=== PATIENT | female | born 1995 | race Caucasian/White ===

== ENCOUNTER 2024-09-10 17:25 | Inpatient (IN) ==
[2024-09-10 18:26] LABS: Basophils # (auto) 0.05 K/uL (0.00-0.20); Basophils % (auto) 0.5 %; Eosinophils # (auto) 0.16 K/uL (0.00-0.50); Eosinophils % (auto) 1.7 %; Hematocrit (blood only) 32.2 % (37.0-47.0); Hemoglobin 10.8 g/dl (12.0-16.0); Immature Granulocytes # (auto) 0.02 K/uL (0.01-0.20); Immature Granulocytes % (auto) 0.2 %; Lymphocytes % (auto) 19.8 %; Mean Corpuscular Hemoglobin 27.3 pg (25.0-34.0); Mean Corpuscular Hgb Conc 33.5 g/dL (32.0-36.0); Mean Corpuscular Volume 81.3 fL (80.0-100.0); Mean Platelet Volume 11.2 fL (9.4-12.4); Monocytes # (auto) 0.51 K/uL (0.11-0.59); Monocytes % (auto) 5.3 %; Neutrophils # (auto) 6.97 K/uL (1.40-6.50); Neutrophils % (auto) 72.5 %; Platelet Count 218 K/uL (130-400); RDW Coefficient of Variation 15.2 % (11.5-14.5); RDW Standard Deviation 44.7 fL (36.4-46.3); Red Blood Count 3.96 M/uL (4.20-5.40); White Blood Count 9.61 K/ul (4.8-10.8)
[2024-09-10 19:40] LABS: Albumin Globulin Ratio 1.3 (0.9-2); Albumin Level 3.5 gm/dl (3.4-5.0); BUN Creatinine Ratio 11.1 (10-20); Bilirubin,Total 0.9 mg/dl (0.2-1.0); Calcium 8.7 mg/dl (8.6-10.3); Creatinine Clr Calc Pharmacy 200.6 ml/min; Globulin 2.6 gm/dl (2.5-4.0); Potassium 3.2 mmol/L (3.5-5.1); Total Protein 6.1 gm/dl (6.0-8.3)
[2024-09-10 20:03] LABS: Total Protein Urine Random 19.9 mg/dl (0-11.9)
[2024-09-10 20:08] LABS: Creatinine Urine Random 210.4 mg/dl; Protein Creatinine Ratio Urine 0.1 (0-0.2)
[2024-09-10] MEDS ORDERED: LIDOCAINE 1% LOCAL 20 ML VIAL INFIL PRN (20:28)
--- NOTE | 2024-09-10 20:32 | History & Physical Report ---
Date of Service September 10, 2024 Assessment & Plan (1) Gestational hypertension: Plan: Admit to L&D. EFM/toco. Preeclampsia labs negative. Will recheck in AM and continue to monitor BPs. Will start pitocin. OK for epidural when she desires. History of Present Illness Chief Complaint: elevated BPs Primary Care Provider: JAIR Hinojosa 28yo @ 38 0/7, referred to L&D from office for elevated BPs. Was delivered at 38w in prior d/t elevated BPs - pt notified office of this for the first time today. + movement, no vaginal bleeding, no leaking fluid. No contractions. No headache, no vision changes. Allergies Allergy/AdvReac Type Severity Reaction Status Date / Time No Known Allergies Allergy Verified 09/10/24 15:39 Home Medications Medication Instructions Recorded Confirmed Type prenat.vits,sasha,afv-btim-preht tab PO 02/22/24 09/10/24 History fexofenadine 30 mg tablet PO 09/10/24 History Patient History Medical History (Updated 09/10/24 @ 20:36 by Susy Varela, ) Generalized anxiety disorder Surgical History History of oral surgery Family History (System 12/02/22 @ 14:39 by Yolanda Dewitt) Father Bipolar disorder Depression Schizophrenia Grandfather (Maternal) Brain cancer Mother Breast cancer Grandmother (Maternal) Skin cancer Denies family history of Ovarian cancer Prostate cancer Myocardial infarction Colorectal cancer Social History (Updated 02/22/24 @ 10:56 by Esperanza Arango) Smoking Status: Never smoker Second Hand Exposure: No; Do You Dip or Chew Tobacco: No; Hx Alcohol Use: No Hx Substance Use: No Preferred Language: Wolof Communication Ability: Effective 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 current occupational status: employed current occupation: RN Other Information That Helps Us Care for You: No Feels Safe at Home: Yes Safety Concerns: Feels Safe At This Time Childhood Exposure to Second-Hand Smoke: No Dental Care, Regularly: Yes Physical Activity Frequency: 3-4 Times per Week Sunscreen Use: Yes Assistive Devices: None Review of Systems All systems reviewed & are unremarkable except as noted in HPI & below Physical Exam Physical Exam: FHT Cat 1 [place] none SVE: 3/80/-2, anterior, soft. EFW 7-8 Constitutional: WD/WN, vitals as above Respiratory: normal respiratory effort, lungs clear to auscultation no respiratory distress Cardiovascular: Rate/Rhythm: regular rate and regular rhythm Gastrointestinal (Abdomen): Inspection/Auscultation: abdomen normal to inspection Percussion/Palpation: abdomen soft; abdomen nontender Gravid. No s/s chorio or abruption. Skin: no rashes, warm and dry Psychiatric: A+Ox3, euthymic affect Results & Data Vital Signs (Past 12 Hours) Vital Signs Temp Pulse Resp BP Pulse Ox 09/10/24 20:28 111 H 97 09/10/24 20:23 111 H 98 09/10/24 20:18 134 H 172/109 H 100 09/10/24 20:13 116 H 97 09/10/24 20:08 109 H 97 09/10/24 20:03 107 H 97 09/10/24 19:58 101 H 97 09/10/24 19:53 112 H 97 09/10/24 19:48 118 H 98 09/10/24 19:43 119 H 97 09/10/24 19:38 109 H 97 09/10/24 19:33 102 H 98 09/10/24 19:31 137 H 131/88 09/10/24 19:21 115 H 135/88 09/10/24 19:12 37.0 C 16 09/10/24 18:57 121 H 146/97 H 09/10/24 18:48 114 H 139/91 09/10/24 18:37 113 H 135/82 09/10/24 18:29 125 H 132/85 09/10/24 18:17 123 H 148/80 H 09/10/24 18:08 120 H 153/91 H 09/10/24 17:59 136 H 156/89 H 09/10/24 17:47 133 H 150/93 H 09/10/24 17:37 37.0 C 127 H 20 139/85 Coding Level of Care Code None Diagnoses Gestational hypertension O13.9
[2024-09-10] MEDS: LACTATED RINGER'S 1,000 ML IV PRN (21:43)
[2024-09-10] MEDS: OXYTOCIN 30 UNITS/NSS 30 UNITS/500 ML BAG IV PRN (21:43)
[2024-09-11] MEDS ORDERED: SODIUM CHLORIDE 0.9% PF INJ 10 ML VIAL EPI PRN (01:10)
[2024-09-11] MEDS ORDERED: LIDOCAINE 2% MPF LOCAL 5 ML VIAL EPI PRN (01:10)
[2024-09-11] MEDS ORDERED: NALOXONE HCL 1 MG in SODIUM CHLORIDE 0.9% 1,000 ML IV PRN (01:10)
[2024-09-11] MEDS ORDERED: NALBUPHINE HCL INJ 10 MG/ML AMP IV PRN (01:10)
[2024-09-11] MEDS ORDERED: fentaNYL citrate PF 100 MCG/2 ML VIAL EPI PRN (01:10)
[2024-09-11] MEDS ORDERED: ROPIVACAINE 0.5% PF 5 MG/ML 20 ML VIAL EPI PRN (01:10)
[2024-09-11] MEDS ORDERED: BUPIVACAINE 0.25% PF 30 ML VIAL EPI PRN (01:10)
[2024-09-11] MEDS ORDERED: diphenhydrAMINE 50 MG/ML VIAL IV PRN (01:10)
[2024-09-11] MEDS ORDERED: NALOXONE HCL 0.4 MG/1 ML VIAL/CARP IV PRN (01:10)
--- NOTE | 2024-09-11 01:12 | Anesthesiology Consultation ---
Date of Service September 11, 2024 Assessment & Plan Chart Review Chart Review: Patient NOT seen in Pre Admission Testing and Acceptable Risk for Labor Epidural Consults Requested none ASA ASA3 Proposed Anesthesia Anesthesia Type: Labor Epidural Risk / Benefits Reviewed With: PT / POA / Parent / Guardian, Accepts Plan and Informed Consent Obtained History Height/Weight Height: 5 ft 5 in Weight: 117.48 kg Allergies Allergy/AdvReac Type Severity Reaction Status Date / Time No Known Allergies Allergy Verified 09/10/24 15:39 Medications Home Medications Medication Instructions Recorded Confirmed Last Taken prenat.vits,sasha,mkd-ycbb-deeds tab PO 02/22/24 09/10/24 09/10/24 07:00 fexofenadine 30 mg tablet PO 09/10/24 09/10/24 07:00 Active Medications Generic Name Dose Route Start Last Admin Trade Name Freq PRN Reason Stop Dose Admin Lactated Ringer's 1,000 mls @ 125 mls/hr 09/10/24 20:28 09/11/24 00:30 Lr IV 09/11/24 20:27 125 mls/hr .Q8H PRN Infusion L&D Protocol Protocol Oxytocin 30 units in 500 mls @ 5 mls/hr 09/10/24 20:29 09/11/24 00:15 Pitocin 30 Units/Nss IV 09/12/24 20:28 0.3 units/hr .Q24H PRN 5 mls/hr Labor Induction/Augmentation Titration Protocol 0.3 UNITS/HR NPO Date Last Intake of Fluids: 09/11/24 Time Last Intake of Fluids: 01:00 Date Last Intake of Solids: 09/10/24 Time Last Intake of Solids: 16:00 Past Medical History Medical History Generalized anxiety disorder Exercise / Class Metabolic Activity 1 > 8 Run/Swim/Ski/Tennis Past Family History Family History Father Bipolar disorder Depression Schizophrenia Grandfather (Maternal) Brain cancer Mother Breast cancer Grandmother (Maternal) Skin cancer Denies family history of Ovarian cancer Prostate cancer Myocardial infarction Colorectal cancer Past Surgical History Surgical History History of oral surgery Past Anesthesia History No Hx of Anesthesia Complications and No Family Hx of Anesthesia Complications History of PONV No Hx of PONV and No Hx of Motion Sickness Social History Smoking Status: Never smoker Do You Dip or Chew Tobacco: No Hx Alcohol Use: No Alcohol type: beer, wine and hard liquor Hx Substance Use: No Review of Systems ROS Unobtainable: All systems reviewed & are unremarkable except as noted in HPI & below Physical Exam Vital Signs Last Vital Signs Temp 37.0 C 09/10/24 22:30 Pulse 80 09/11/24 01:05 Resp 16 09/10/24 23:00 BP 133/79 09/11/24 00:49 Pulse Ox 97 09/11/24 01:05 ENMT Mouth: no TMJ abnormality Thyromental Distance: > or= 3.5 Finger Breadths Mallampati Class: II Neck normal visual inspection and trachea midline; neck extension not limited Respiratory normal respiratory effort Auscultation: lungs clear to auscultation bilaterally Cardiovascular Rate/Rhythm: regular rate and regular rhythm Heart Sounds: no murmur Musculoskeletal Spine: normal cervical ROM Extremities: full ROM of extremities Neurologic moves all extremities Psychiatric Orientation: alert and oriented x 3 Testing Laboratory Results 09/10/24 18:13 09/10/24 18:13 Blood Type A Positive 09/10/24 18:13 Blood Type Cancelled 09/10/24 18:13 Antibody Screen Cancelled 09/10/24 18:13 Antibody Screen NEGATIVE 09/10/24 18:13
[2024-09-11] MEDS: BUPIVACAINE 0.25% PF 30 ML VIAL ONE (01:28)
[2024-09-11] MEDS: fentANYL 2 MCG/ML BUPIVacaine 0.125%-NSS 100ML BAG ONE (01:28)
[2024-09-11] MEDS: SODIUM CHLORIDE 0.9% PF INJ 10 ML VIAL ONE (01:28)
[2024-09-11] MEDS: ePHEDrine sulfate 50 MG/ML AMP IV PRN (01:42)
[2024-09-11] MEDS: LIDOCAINE 2%/EPINEPHRINE 1:200,000 20 ML PF ONE (02:03)
[2024-09-11] MEDS: BUPIVACAINE 0.25% PF 30 ML VIAL EPI STA (02:03)
[2024-09-11] MEDS: fentaNYL citrate PF 100 MCG/2 ML VIAL ONE (02:03)
[2024-09-11] MEDS: LIDOCAINE 2%/EPINEPHRINE 1:200,000 20 ML PF EPI STA (02:04)
[2024-09-11] MEDS: SODIUM CHLORIDE 0.9% PF INJ 10 ML VIAL EPI STA (02:04)
[2024-09-11] MEDS: fentaNYL citrate PF 100 MCG/2 ML VIAL EPI STA (02:04)
[2024-09-11] MEDS: ePHEDrine sulfate 50 MG/ML AMP ONE (02:25)
[2024-09-11 04:36] LABS: Hematocrit (blood only) 30.4 % (37.0-47.0); Hemoglobin 10.2 g/dl (12.0-16.0); Mean Corpuscular Hemoglobin 27.1 pg (25.0-34.0); Mean Corpuscular Hgb Conc 33.6 g/dL (32.0-36.0); Mean Corpuscular Volume 80.6 fL (80.0-100.0); Mean Platelet Volume 11.1 fL (9.4-12.4); Platelet Count 212 K/uL (130-400); RDW Coefficient of Variation 15.4 % (11.5-14.5); RDW Standard Deviation 44.5 fL (36.4-46.3); Red Blood Count 3.77 M/uL (4.20-5.40); White Blood Count 8.67 K/ul (4.8-10.8)
[2024-09-11 04:46] LABS: Albumin Globulin Ratio 1.2 (0.9-2); Albumin Level 3.2 gm/dl (3.4-5.0); BUN Creatinine Ratio 9.4 (10-20); Calcium 7.8 mg/dl (8.6-10.3); Creatinine Clr Calc Pharmacy 204.4 ml/min; Globulin 2.7 gm/dl (2.5-4.0); Potassium 3.4 mmol/L (3.5-5.1); Total Protein 5.9 gm/dl (6.0-8.3)
--- NOTE | 2024-09-11 07:30 | Labor Progress Brief Note ---
Date of Service September 11, 2024 Subjective Comfortable with epidural. FHT Cat 1 [place] Q 2-3 SVE 5/80/-2 AROM clear fluid. Assessment & Plan Admission and Anticipated Discharge Date Admission Date: September 10, 2024 Results & Data Vital Signs (Past 12 Hours) Vital Signs Temp Pulse Resp BP Pulse Ox 09/11/24 07:28 78 116/67 09/11/24 07:25 87 98 09/11/24 07:20 84 96 09/11/24 07:19 83 94 09/11/24 07:15 92 H 94 09/11/24 07:14 86 89 L 09/11/24 07:11 86 122/71 09/11/24 07:10 79 95 09/11/24 07:09 94 H 94 09/11/24 07:05 94 H 95 09/11/24 07:00 98 H 16 94 09/11/24 06:56 94 H 128/75 09/11/24 06:55 98 H 97 09/11/24 06:53 108 H 93 09/11/24 06:50 81 97 09/11/24 06:45 95 H 95 09/11/24 06:42 75 122/69 09/11/24 06:40 83 98 09/11/24 06:35 89 97 09/11/24 06:30 91 H 16 97 09/11/24 06:26 100 H 122/71 09/11/24 06:25 94 H 98 09/11/24 06:24 87 92 09/11/24 06:20 84 98 09/11/24 06:18 100 H 92 09/11/24 06:15 106 H 99 09/11/24 06:11 92 H 120/66 09/11/24 06:10 86 97 09/11/24 06:08 105 H 94 09/11/24 06:05 98 H 95 09/11/24 06:02 91 H 94 09/11/24 06:00 86 16 94 09/11/24 05:57 85 94 09/11/24 05:56 86 116/66 09/11/24 05:55 84 90 09/11/24 05:50 90 94 09/11/24 05:45 85 94 09/11/24 05:43 76 93 09/11/24 05:41 98 H 122/70 09/11/24 05:40 92 H 93 09/11/24 05:37 77 93 09/11/24 05:35 89 94 09/11/24 05:31 84 93 09/11/24 05:30 113 H 96 09/11/24 05:26 81 02 05:26 88 121/61 93 09/11/24 05:25 87 95 09/11/24 05:20 81 93 09/11/24 05:15 77 95 09/11/24 05:12 93 H 130/65 09/11/24 05:11 90 91 09/11/24 05:10 96 H 96 09/11/24 05:05 92 H 94 09/11/24 05:04 93 H 94 09/11/24 05:00 86 16 93 09/11/24 04:59 36.7 C 09/11/24 04:56 88 113/60 09/11/24 04:55 82 92 09/11/24 04:50 86 93 09/11/24 04:45 93 H 94 09/11/24 04:42 88 127/68 09/11/24 04:40 83 93 09/11/24 04:37 105 H 92 09/11/24 04:35 90 92 09/11/24 04:31 86 94 09/11/24 04:30 96 H 16 96 09/11/24 04:26 93 H 121/66 09/11/24 04:25 88 98 09/11/24 04:20 85 96 09/11/24 04:16 87 94 09/11/24 04:15 90 94 09/11/24 04:11 86 120/69 93 09/11/24 04:10 99 H 95 09/11/24 04:05 97 H 96 09/11/24 04:00 101 H 16 93 09/11/24 03:58 104 H 94 09/11/24 03:56 105 H 127/64 02 03:55 96 H 95 09/11/24 03:52 114 H 94 09/11/24 03:50 109 H 92 09/11/24 03:47 86 94 09/11/24 03:45 93 H 96 09/11/24 03:42 90 93 09/11/24 03:41 101 H 122/59 L 09/11/24 03:40 85 93 09/11/24 03:35 82 93 09/11/24 03:30 84 16 93 09/11/24 03:28 99 H 94 09/11/24 03:26 90 122/59 L 09/11/24 03:25 83 92 09/11/24 03:22 82 94 09/11/24 03:20 89 93 09/11/24 03:15 92 H 93 09/11/24 03:10 111 H 103/59 L 97 09/11/24 03:06 83 113/66 09/11/24 03:05 75 91 09/11/24 03:03 93 H 94 09/11/24 03:00 84 16 117/65 94 09/11/24 02:57 82 94 09/11/24 02:55 85 117/66 96 09/11/24 02:52 79 93 09/11/24 02:50 97 09/11/24 02:50 93 H 09/11/24 02:50 97 H 121/66 09/11/24 02:47 89 120/63 09/11/24 02:46 82 94 09/11/24 02:45 80 96 09/11/24 02:40 98 09/11/24 02:40 108 H 09/11/24 02:40 101 H 110/59 L 93 09/11/24 02:36 91 H 120/66 09/11/24 02:35 95 09/11/24 02:35 93 H 09/11/24 02:35 80 94 09/11/24 02:31 88 124/65 09/11/24 02:30 86 16 92 09/11/24 02:27 84 94 09/11/24 02:25 112 H 116/66 97 09/11/24 02:21 92 H 120/65 09/11/24 02:20 92 H 92 09/11/24 02:15 95 09/11/24 02:15 101 H 09/11/24 02:15 91 H 128/66 09/11/24 02:13 82 94 09/11/24 02:10 94 09/11/24 02:10 103 H 09/11/24 02:10 99 H 116/59 L 09/11/24 02:07 105 H 94 09/11/24 02:05 82 127/69 94 09/11/24 02:02 86 93 09/11/24 02:00 103 H 16 125/67 92 09/11/24 01:57 100 H 120/62 09/11/24 01:56 98 H 94 09/11/24 01:55 102 H 113/55 L 100 09/11/24 01:52 90 128/71 09/11/24 01:50 97 H 111/60 100 09/11/24 01:49 100 H 90 09/11/24 01:48 96 H 130/70 09/11/24 01:47 95 H 134/73 09/11/24 01:46 86 122/67 09/11/24 01:45 87 16 96 09/11/24 01:44 97 H 93/51 L 09/11/24 01:43 74 91 09/11/24 01:42 82 93/55 L 09/11/24 01:41 81 90/53 L 09/11/24 01:40 89 L 09/11/24 01:40 89 09/11/24 01:40 94 H 97/55 L 09/11/24 01:39 90 109/60 09/11/24 01:38 93 H 96/50 L 91 09/11/24 01:36 104 H 121/58 L 09/11/24 01:35 16 09/11/24 01:35 16 09/11/24 01:35 94 09/11/24 01:35 100 H 09/11/24 01:35 121 H 114/58 L 09/11/24 01:33 121 H 113/56 L 09/11/24 01:31 103 H 126/68 09/11/24 01:30 99 H 16 92 09/11/24 01:29 109 H 119/81 09/11/24 01:26 96 H 121/85 92 09/11/24 01:25 98 H 91 09/11/24 01:21 85 87 L 09/11/24 01:20 87 98 09/11/24 01:15 79 95 09/11/24 01:10 84 97 09/11/24 01:09 87 93 09/11/24 01:05 80 97 09/11/24 01:02 81 94 09/11/24 01:00 81 100 09/11/24 00:55 78 96 09/11/24 00:50 83 96 09/11/24 00:49 86 133/79 91 02/26/25 00:45 90 96 09/11/24 00:40 86 96 09/11/24 00:26 78 97 09/11/24 00:21 83 97 09/11/24 00:16 89 97 09/11/24 00:11 86 96 09/11/24 00:06 82 96 09/11/24 00:01 84 95 09/10/24 23:56 92 H 94 09/10/24 23:51 91 H 95 09/10/24 23:50 103 H 122/83 09/10/24 23:49 98 H 94 09/10/24 23:46 96 H 96 09/10/24 23:41 90 97 09/10/24 23:36 83 96 09/10/24 23:31 92 H 96 09/10/24 23:26 98 H 94 09/10/24 23:24 85 94 09/10/24 23:21 82 95 09/10/24 23:16 77 94 09/10/24 23:15 92 H 93 09/10/24 23:11 92 H 96 09/10/24 23:06 90 96 09/10/24 23:02 88 91 09/10/24 23:01 90 96 09/10/24 23:00 16 09/10/24 23:00 16 09/10/24 22:56 93 H 96 09/10/24 22:52 96 H 145/82 H 09/10/24 22:51 98 09/10/24 22:51 97 H 09/10/24 22:51 93 H 94 09/10/24 22:46 93 H 95 09/10/24 22:41 91 H 96 09/10/24 22:36 97 H 97 09/10/24 22:31 98 H 98 09/10/24 22:30 16 09/10/24 22:30 37.0 C 16 09/10/24 22:22 103 H 95 09/10/24 22:17 99 H 96 09/10/24 22:12 105 H 96 09/10/24 22:07 99 H 95 09/10/24 22:02 99 H 97 09/10/24 21:57 98 H 96 09/10/24 21:52 100 H 96 09/10/24 21:47 106 H 95 09/10/24 21:42 103 H 96 09/10/24 21:37 95 H 97 09/10/24 21:32 111 H 97 09/10/24 21:27 109 H 97 09/10/24 21:23 104 H 93 09/10/24 21:21 105 H 96 09/10/24 21:16 101 H 97 09/10/24 21:11 99 H 97 09/10/24 21:06 107 H 97 09/10/24 21:01 107 H 97 09/10/24 20:56 108 H 97 09/10/24 20:52 120 H 158/96 H 09/10/24 20:51 120 H 93 09/10/24 20:46 113 H 98 09/10/24 20:37 121 H 182/101 H 09/10/24 20:33 97 09/10/24 20:33 124 H 09/10/24 20:33 126 H 178/105 H 09/10/24 20:28 111 H 97 09/10/24 20:23 111 H 98 09/10/24 20:18 134 H 172/109 H 100 09/10/24 20:13 116 H 97 09/10/24 20:08 109 H 97 09/10/24 20:03 107 H 97 09/10/24 19:58 101 H 97 09/10/24 19:53 112 H 97 09/10/24 19:48 118 H 98 09/10/24 19:43 119 H 97 09/10/24 19:38 109 H 97 09/10/24 19:33 102 H 98 09/10/24 19:31 137 H 131/88 Coding Level of Care Code None
--- NOTE | 2024-09-11 09:05 | Labor Progress Brief Note ---
Date of Service September 11, 2024 Subjective denies pain, has epidural Assessment & Plan (1) Encounter for induction of labor: Plan: no progress by exam, ctx pattern not well traced, iupc placed as likely needs more pit, will increase pit max. fhts categ 1. (2) Gestational hypertension: Plan: bps ok. Admission and Anticipated Discharge Date Admission Date: September 10, 2024 Physical Exam Constitutional: WD/WN, vitals as above Genitourinary: Manual OB Exam: + cervical dilation 5 cm, + cervical effacement (75%) and + station -2 OB Exam Monitor Tracing: + external FHT monitor used, + external uterine monitor used (not traced well, pit at 17), + intra-uterine pressure catheter used (IUPC placed. ), + category I and + normal FHT variability Results & Data Vital Signs (Past 12 Hours) Vital Signs Temp Pulse Resp BP Pulse Ox 09/11/24 09:00 78 97 09/11/24 08:56 80 107/58 L 09/11/24 08:55 78 97 09/11/24 08:50 88 94 09/11/24 08:45 87 97 09/11/24 08:41 91 H 100/57 L 09/11/24 08:40 92 H 96 09/11/24 08:38 83 94 09/11/24 08:35 84 95 09/11/24 08:32 79 94 09/11/24 08:30 79 94 09/11/24 08:26 93 H 104/56 L 09/11/24 08:25 95 H 94 09/11/24 08:24 96 H 94 09/11/24 08:20 97 H 96 09/11/24 08:15 106 H 95 09/11/24 08:14 100 H 94 09/11/24 08:12 95 H 123/75 09/11/24 08:10 103 H 96 09/11/24 08:05 102 H 96 09/11/24 08:00 94 H 94 09/11/24 07:56 82 118/73 09/11/24 07:55 84 96 09/11/24 07:50 97 09/11/24 07:50 104 H 09/11/24 07:50 83 94 09/11/24 07:45 97 H 97 09/11/24 07:42 86 123/73 09/11/24 07:40 97 H 97 09/11/24 07:35 86 97 09/11/24 07:30 80 95 09/11/24 07:28 78 116/67 09/11/24 07:25 87 98 09/11/24 07:20 84 96 09/11/24 07:19 83 94 09/11/24 07:15 92 H 94 09/11/24 07:14 86 89 L 09/11/24 07:11 86 122/71 09/11/24 07:10 79 95 09/11/24 07:09 94 H 94 09/11/24 07:05 94 H 95 09/11/24 07:00 97.7 F 98 H 16 94 09/11/24 06:56 94 H 128/75 09/11/24 06:55 98 H 97 09/11/24 06:53 108 H 93 09/11/24 06:50 81 97 09/11/24 06:45 95 H 95 09/11/24 06:42 75 122/69 09/11/24 06:40 83 98 09/11/24 06:35 89 97 09/11/24 06:30 91 H 16 97 09/11/24 06:26 100 H 122/71 09/11/24 06:25 94 H 98 09/11/24 06:24 87 92 09/11/24 06:20 84 98 09/11/24 06:18 100 H 92 09/11/24 06:15 106 H 99 09/11/24 06:11 92 H 120/66 09/11/24 06:10 86 97 09/11/24 06:08 105 H 94 09/11/24 06:05 98 H 95 09/11/24 06:02 91 H 94 09/11/24 06:00 86 16 94 09/11/24 05:57 85 94 09/11/24 05:56 86 116/66 09/11/24 05:55 84 90 09/11/24 05:50 90 94 09/11/24 05:45 85 94 09/11/24 05:43 76 93 09/11/24 05:41 98 H 122/70 09/11/24 05:40 92 H 93 09/11/24 05:37 77 93 09/11/24 05:35 89 94 09/11/24 05:31 84 93 09/11/24 05:30 113 H 96 09/11/24 05:26 81 09/11/24 05:26 88 121/61 93 09/11/24 05:25 87 95 09/11/24 05:20 81 93 09/11/24 05:15 77 95 09/11/24 05:12 93 H 130/65 09/11/24 05:11 90 91 09/11/24 05:10 96 H 96 09/11/24 05:05 92 H 94 09/11/24 05:04 93 H 94 09/11/24 05:00 86 16 93 09/11/24 04:59 98.1 F 09/11/24 04:56 88 113/60 09/11/24 04:55 82 92 09/11/24 04:50 86 93 09/11/24 04:45 93 H 94 09/11/24 04:42 88 127/68 09/11/24 04:40 83 93 09/11/24 04:37 105 H 92 09/11/24 04:35 90 92 09/11/24 04:31 86 94 09/11/24 04:30 96 H 16 96 09/11/24 04:26 93 H 121/66 09/11/24 04:25 88 98 09/11/24 04:20 85 96 09/11/24 04:16 87 94 09/11/24 04:15 90 94 09/11/24 04:11 86 120/69 93 09/11/24 04:10 99 H 95 09/11/24 04:05 97 H 96 09/11/24 04:00 101 H 16 93 09/11/24 03:58 104 H 94 09/11/24 03:56 105 H 127/64 09/11/24 03:55 96 H 95 09/11/24 03:52 114 H 94 09/11/24 03:50 109 H 92 09/11/24 03:47 86 94 09/11/24 03:45 93 H 96 09/11/24 03:42 90 93 09/11/24 03:41 101 H 122/59 L 09/11/24 03:40 85 93 09/11/24 03:35 82 93 09/11/24 03:30 84 16 93 09/11/24 03:28 99 H 94 09/11/24 03:26 90 122/59 L 09/11/24 03:25 83 92 09/11/24 03:22 82 94 09/11/24 03:20 89 93 09/11/24 03:15 92 H 93 09/11/24 03:10 111 H 103/59 L 97 09/11/24 03:06 83 113/66 09/11/24 03:05 75 91 09/11/24 03:03 93 H 94 09/11/24 03:00 84 16 117/65 94 09/11/24 02:57 82 94 09/11/24 02:55 85 117/66 96 09/11/24 02:52 79 93 09/11/24 02:50 97 09/11/24 02:50 93 H 09/11/24 02:50 97 H 121/66 09/11/24 02:47 89 120/63 09/11/24 02:46 82 94 09/11/24 02:45 80 96 09/11/24 02:40 98 09/11/24 02:40 108 H 09/11/24 02:40 101 H 110/59 L 93 09/11/24 02:36 91 H 120/66 09/11/24 02:35 95 09/11/24 02:35 93 H 09/11/24 02:35 80 94 09/11/24 02:31 88 124/65 09/11/24 02:30 86 16 92 09/11/24 02:27 84 94 09/11/24 02:25 112 H 116/66 97 09/11/24 02:21 92 H 120/65 09/11/24 02:20 92 H 92 09/11/24 02:15 95 09/11/24 02:15 101 H 09/11/24 02:15 91 H 128/66 09/11/24 02:13 82 94 09/11/24 02:10 94 09/11/24 02:10 103 H 09/11/24 02:10 99 H 116/59 L 09/11/24 02:07 105 H 94 09/11/24 02:05 82 127/69 94 09/11/24 02:02 86 93 09/11/24 02:00 103 H 16 125/67 92 09/11/24 01:57 100 H 120/62 09/11/24 01:56 98 H 94 09/11/24 01:55 102 H 113/55 L 100 09/11/24 01:52 90 128/71 09/11/24 01:50 97 H 111/60 100 09/11/24 01:49 100 H 90 09/11/24 01:48 96 H 130/70 09/11/24 01:47 95 H 134/73 09/11/24 01:46 86 122/67 09/11/24 01:45 87 16 96 09/11/24 01:44 97 H 93/51 L 09/11/24 01:43 74 91 09/11/24 01:42 82 93/55 L 09/11/24 01:41 81 90/53 L 09/11/24 01:40 89 L 09/11/24 01:40 89 09/11/24 01:40 94 H 97/55 L 09/11/24 01:39 90 109/60 09/11/24 01:38 93 H 96/50 L 91 09/11/24 01:36 104 H 121/58 L 09/11/24 01:35 16 09/11/24 01:35 16 09/11/24 01:35 94 09/11/24 01:35 100 H 09/11/24 01:35 121 H 114/58 L 09/11/24 01:33 121 H 113/56 L 09/11/24 01:31 103 H 126/68 09/11/24 01:30 99 H 16 92 09/11/24 01:29 109 H 119/81 09/11/24 01:26 96 H 121/85 92 09/11/24 01:25 98 H 91 09/11/24 01:21 85 87 L 09/11/24 01:20 87 98 09/11/24 01:15 79 95 09/11/24 01:10 84 97 09/11/24 01:09 87 93 09/11/24 01:05 80 97 09/11/24 01:02 81 94 09/11/24 01:00 81 100 09/11/24 00:55 78 96 09/11/24 00:50 83 96 09/11/24 00:49 86 133/79 91 09/11/24 00:45 90 96 09/11/24 00:40 86 96 09/11/24 00:26 78 97 09/11/24 00:21 83 97 09/11/24 00:16 89 97 09/11/24 00:11 86 96 09/11/24 00:06 82 96 09/11/24 00:01 84 95 09/10/24 23:56 92 H 94 09/10/24 23:51 91 H 95 09/10/24 23:50 103 H 122/83 09/10/24 23:49 98 H 94 09/10/24 23:46 96 H 96 09/10/24 23:41 90 97 09/10/24 23:36 83 96 09/10/24 23:31 92 H 96 09/10/24 23:26 98 H 94 09/10/24 23:24 85 94 09/10/24 23:21 82 95 09/10/24 23:16 77 94 09/10/24 23:15 92 H 93 09/10/24 23:11 92 H 96 09/10/24 23:06 90 96 09/10/24 23:02 88 91 09/10/24 23:01 90 96 09/10/24 23:00 16 09/10/24 23:00 16 09/10/24 22:56 93 H 96 09/10/24 22:52 96 H 145/82 H 09/10/24 22:51 98 09/10/24 22:51 97 H 09/10/24 22:51 93 H 94 09/10/24 22:46 93 H 95 09/10/24 22:41 91 H 96 09/10/24 22:36 97 H 97 09/10/24 22:31 98 H 98 09/10/24 22:30 16 09/10/24 22:30 98.6 F 16 09/10/24 22:22 103 H 95 09/10/24 22:17 99 H 96 09/10/24 22:12 105 H 96 09/10/24 22:07 99 H 95 09/10/24 22:02 99 H 97 09/10/24 21:57 98 H 96 09/10/24 21:52 100 H 96 09/10/24 21:47 106 H 95 09/10/24 21:42 103 H 96 09/10/24 21:37 95 H 97 09/10/24 21:32 111 H 97 09/10/24 21:27 109 H 97 09/10/24 21:23 104 H 93 09/10/24 21:21 105 H 96 09/10/24 21:16 101 H 97 09/10/24 21:11 99 H 97 09/10/24 21:06 107 H 97 Coding Level of Care Code None Diagnoses Encounter for induction of labor Z34.90 Gestational hypertension O13.9
[2024-09-11] MEDS: fentANYL 2 MCG/ML BUPIVacaine 0.125%-NSS 100ML BAG EPI PRN (11:01)
[2024-09-11] MEDS ORDERED: LACTATED RINGER'S 500 ML IV ONE (11:33)
--- NOTE | 2024-09-11 12:34 | Labor Progress Brief Note ---
Date of Service September 11, 2024 Subjective comfortable with epidural. feels more pressure on cx. Assessment & Plan (1) Encounter for induction of labor: (2) Gestational hypertension: Plan good cx change. inadeq mvu's. will cont with pitocin. fhts categ 1. Admission and Anticipated Discharge Date Admission Date: September 10, 2024 Physical Exam Constitutional: WD/WN, vitals as above Genitourinary: Manual OB Exam: + cervical dilation 8 cm (with ctx), + cervical effacement 100% and + station + 1 OB Exam Monitor Tracing: + external FHT monitor used, + external uterine monitor used (q2-3 pit at 27, inadeq mvu's), + category I and + normal FHT variability Results & Data Vital Signs (Past 12 Hours) Vital Signs Temp Pulse Resp BP Pulse Ox 09/11/24 12:26 76 134/80 09/11/24 12:15 80 134/80 09/11/24 12:13 86 09/11/24 12:13 83 145/91 H 89 L 09/11/24 12:10 97.7 F 90 98 09/11/24 12:05 90 98 09/11/24 12:00 96 H 99 09/11/24 11:56 81 130/72 09/11/24 11:55 83 98 09/11/24 11:50 97 09/11/24 11:50 88 09/11/24 11:50 95 H 92 09/11/24 11:45 96 H 96 09/11/24 11:41 100 H 134/79 09/11/24 11:40 101 H 94 09/11/24 11:35 107 H 95 09/11/24 11:30 129 H 99 09/11/24 11:26 90 131/77 09/11/24 11:25 92 H 96 09/11/24 11:20 92 H 97 09/11/24 11:15 86 95 09/11/24 11:12 85 121/74 09/11/24 11:10 97 H 96 09/11/24 11:09 83 94 09/11/24 11:05 102 H 95 09/11/24 11:03 100 H 94 09/11/24 11:01 85 124/75 09/11/24 11:00 92 H 95 09/11/24 10:56 108 H 127/74 09/11/24 10:55 100 H 94 09/11/24 10:54 100 H 93 09/11/24 10:50 85 97 09/11/24 10:45 91 H 98 09/11/24 10:41 98 H 128/81 09/11/24 10:40 85 98 09/11/24 10:35 97 H 95 09/11/24 10:30 103 H 97 09/11/24 10:27 87 130/75 09/11/24 10:25 95 H 96 09/11/24 10:23 92 H 92 09/11/24 10:20 87 97 09/11/24 10:17 86 92 09/11/24 10:15 86 100 09/11/24 10:12 82 126/72 09/11/24 10:10 83 93 09/11/24 10:09 86 90 09/11/24 10:05 87 96 09/11/24 10:00 97 H 97 09/11/24 09:58 82 107/57 L 09/11/24 09:55 80 96 09/11/24 09:50 78 96 09/11/24 09:45 78 98 09/11/24 09:44 79 92 09/11/24 09:41 75 121/69 09/11/24 09:40 80 97 09/11/24 09:38 81 94 09/11/24 09:36 15 09/11/24 09:36 98.2 F 15 09/11/24 09:35 77 96 09/11/24 09:30 91 H 96 09/11/24 09:26 73 09/11/24 09:26 83 117/69 93 09/11/24 09:25 87 96 09/11/24 09:20 87 97 09/11/24 09:15 91 H 97 09/11/24 09:11 77 113/64 09/11/24 09:10 93 H 95 09/11/24 09:05 85 97 09/11/24 09:00 78 97 09/11/24 08:56 80 107/58 L 09/11/24 08:55 78 97 09/11/24 08:50 88 94 09/11/24 08:45 87 97 09/11/24 08:41 91 H 100/57 L 09/11/24 08:40 92 H 96 09/11/24 08:38 83 94 09/11/24 08:35 84 95 09/11/24 08:32 79 94 09/11/24 08:30 79 94 09/11/24 08:26 93 H 104/56 L 09/11/24 08:25 95 H 94 09/11/24 08:24 96 H 94 09/11/24 08:20 97 H 96 09/11/24 08:15 106 H 95 09/11/24 08:14 100 H 94 09/11/24 08:12 95 H 123/75 09/11/24 08:10 103 H 96 09/11/24 08:05 102 H 96 09/11/24 08:00 94 H 94 09/11/24 07:56 82 118/73 09/11/24 07:55 84 96 09/11/24 07:50 97 09/11/24 07:50 104 H 09/11/24 07:50 83 94 09/11/24 07:45 97 H 97 09/11/24 07:42 86 123/73 09/11/24 07:40 97 H 97 09/11/24 07:35 86 97 09/11/24 07:30 80 95 09/11/24 07:28 78 116/67 09/11/24 07:25 87 98 09/11/24 07:20 84 96 09/11/24 07:19 83 94 09/11/24 07:15 92 H 94 09/11/24 07:14 86 89 L 09/11/24 07:11 86 122/71 09/11/24 07:10 79 95 09/11/24 07:09 94 H 94 09/11/24 07:05 94 H 95 09/11/24 07:00 97.7 F 98 H 16 94 09/11/24 06:56 94 H 128/75 09/11/24 06:55 98 H 97 09/11/24 06:53 108 H 93 09/11/24 06:50 81 97 09/11/24 06:45 95 H 95 09/11/24 06:42 75 122/69 09/11/24 06:40 83 98 09/11/24 06:35 89 97 09/11/24 06:30 91 H 16 97 09/11/24 06:26 100 H 122/71 09/11/24 06:25 94 H 98 09/11/24 06:24 87 92 09/11/24 06:20 84 98 09/11/24 06:18 100 H 92 09/11/24 06:15 106 H 99 09/11/24 06:11 92 H 120/66 09/11/24 06:10 86 97 09/11/24 06:08 105 H 94 09/11/24 06:05 98 H 95 09/11/24 06:02 91 H 94 09/11/24 06:00 86 16 94 09/11/24 05:57 85 94 09/11/24 05:56 86 116/66 09/11/24 05:55 84 90 09/11/24 05:50 90 94 09/11/24 05:45 85 94 09/11/24 05:43 76 93 09/11/24 05:41 98 H 122/70 09/11/24 05:40 92 H 93 09/11/24 05:37 77 93 09/11/24 05:35 89 94 09/11/24 05:31 84 93 09/11/24 05:30 113 H 96 09/11/24 05:26 81 09/11/24 05:26 88 121/61 93 09/11/24 05:25 87 95 09/11/24 05:20 81 93 09/11/24 05:15 77 95 09/11/24 05:12 93 H 130/65 09/11/24 05:11 90 91 09/11/24 05:10 96 H 96 09/11/24 05:05 92 H 94 09/11/24 05:04 93 H 94 09/11/24 05:00 86 16 93 09/11/24 04:59 98.1 F 09/11/24 04:56 88 113/60 09/11/24 04:55 82 92 09/11/24 04:50 86 93 09/11/24 04:45 93 H 94 09/11/24 04:42 88 127/68 09/11/24 04:40 83 93 09/11/24 04:37 105 H 92 09/11/24 04:35 90 92 09/11/24 04:31 86 94 09/11/24 04:30 96 H 16 96 09/11/24 04:26 93 H 121/66 09/11/24 04:25 88 98 02/26/25 04:20 85 96 09/11/24 04:16 87 94 09/11/24 04:15 90 94 09/11/24 04:11 86 120/69 93 09/11/24 04:10 99 H 95 09/11/24 04:05 97 H 96 09/11/24 04:00 101 H 16 93 09/11/24 03:58 104 H 94 09/11/24 03:56 105 H 127/64 09/11/24 03:55 96 H 95 09/11/24 03:52 114 H 94 09/11/24 03:50 109 H 92 09/11/24 03:47 86 94 09/11/24 03:45 93 H 96 09/11/24 03:42 90 93 09/11/24 03:41 101 H 122/59 L 09/11/24 03:40 85 93 09/11/24 03:35 82 93 09/11/24 03:30 84 16 93 09/11/24 03:28 99 H 94 09/11/24 03:26 90 122/59 L 09/11/24 03:25 83 92 09/11/24 03:22 82 94 09/11/24 03:20 89 93 09/11/24 03:15 92 H 93 09/11/24 03:10 111 H 103/59 L 97 09/11/24 03:06 83 113/66 09/11/24 03:05 75 91 09/11/24 03:03 93 H 94 09/11/24 03:00 84 16 117/65 94 09/11/24 02:57 82 94 09/11/24 02:55 85 117/66 96 09/11/24 02:52 79 93 09/11/24 02:50 97 09/11/24 02:50 93 H 09/11/24 02:50 97 H 121/66 09/11/24 02:47 89 120/63 09/11/24 02:46 82 94 09/11/24 02:45 80 96 09/11/24 02:40 98 09/11/24 02:40 108 H 09/11/24 02:40 101 H 110/59 L 93 09/11/24 02:36 91 H 120/66 09/11/24 02:35 95 09/11/24 02:35 93 H 09/11/24 02:35 80 94 09/11/24 02:31 88 124/65 09/11/24 02:30 86 16 92 09/11/24 02:27 84 94 09/11/24 02:25 112 H 116/66 97 09/11/24 02:21 92 H 120/65 09/11/24 02:20 92 H 92 09/11/24 02:15 95 09/11/24 02:15 101 H 09/11/24 02:15 91 H 128/66 09/11/24 02:13 82 94 09/11/24 02:10 94 09/11/24 02:10 103 H 09/11/24 02:10 99 H 116/59 L 09/11/24 02:07 105 H 94 09/11/24 02:05 82 127/69 94 09/11/24 02:02 86 93 09/11/24 02:00 103 H 16 125/67 92 09/11/24 01:57 100 H 120/62 09/11/24 01:56 98 H 94 09/11/24 01:55 102 H 113/55 L 100 09/11/24 01:52 90 128/71 09/11/24 01:50 97 H 111/60 100 09/11/24 01:49 100 H 90 09/11/24 01:48 96 H 130/70 09/11/24 01:47 95 H 134/73 09/11/24 01:46 86 122/67 09/11/24 01:45 87 16 96 09/11/24 01:44 97 H 93/51 L 09/11/24 01:43 74 91 09/11/24 01:42 82 93/55 L 09/11/24 01:41 81 90/53 L 09/11/24 01:40 89 L 09/11/24 01:40 89 09/11/24 01:40 94 H 97/55 L 09/11/24 01:39 90 109/60 09/11/24 01:38 93 H 96/50 L 91 09/11/24 01:36 104 H 121/58 L 09/11/24 01:35 16 09/11/24 01:35 16 09/11/24 01:35 94 09/11/24 01:35 100 H 09/11/24 01:35 121 H 114/58 L 09/11/24 01:33 121 H 113/56 L 09/11/24 01:31 103 H 126/68 09/11/24 01:30 99 H 16 92 09/11/24 01:29 109 H 119/81 09/11/24 01:26 96 H 121/85 92 09/11/24 01:25 98 H 91 09/11/24 01:21 85 87 L 09/11/24 01:20 87 98 09/11/24 01:15 79 95 09/11/24 01:10 84 97 09/11/24 01:09 87 93 09/11/24 01:05 80 97 09/11/24 01:02 81 94 09/11/24 01:00 81 100 09/11/24 00:55 78 96 09/11/24 00:50 83 96 09/11/24 00:49 86 133/79 91 09/11/24 00:45 90 96 09/11/24 00:40 86 96 Coding Level of Care Code None Diagnoses Encounter for induction of labor Z34.90 Gestational hypertension O13.9
[2024-09-11] MEDS: miSOPROStoL 200 MCG TAB PR ONE (13:21)
--- NOTE | 2024-09-11 13:31 | Delivery Summary ---
Vaginal Delivery Summary Date of Service September 11, 2024 Vaginal Delivery Summary The patient dilated to complete and pushed to deliver a viable female Apgars 9 and 9 via over intact perineum. Shoulders and body delivered with ease. was vigorous and crying at . to maternal abdomen where cord clamped then doubly clamped and cut. Placenta delivered spontaneously and intact, three-vessel cord. Hemostasis not achieved with dilute pitocin and uterine massage and drainage of the bladder for approximately 0 cc under sterile conditions, therefore cytotec 1000mcg placed rectally. Hemostasis achieved with further massage, medications, dilute pitocin. Cervix and sulci intact. QBL 463 cc. Mother and baby stable in recovery. [facility] Vaginal Delivery Charge Delivery Type Details:
[2024-09-11] MEDS: OXYTOCIN 30 UNITS/NSS 30 UNITS/500 ML BAG IV PRN (13:35)
[2024-09-11] MEDS ORDERED: OXYTOCIN 30 UNITS/NSS 30 UNITS/500 ML BAG IV PRN (14:54)
[2024-09-11] MEDS ORDERED: HYDROCORTISONE ACETATE 25 MG SUPP PR PRN (14:54)
[2024-09-11] MEDS ORDERED: oxyCODONE/ACETAMINOPHEN 5mg/325mg TAB PO PRN (14:54)
--- NOTE | 2024-09-11 15:07 | Anesthesia Procedure Note ---
Date of Service September 11, 2024 Anesthesia Post Epidural Note Vital Signs Vital Signs: Temp Pulse Resp BP Pulse Ox O2 Del Method 36.9 C 72 15 133/76 100 Room Air 09/11/24 13:30 09/11/24 14:56 09/11/24 13:30 09/11/24 14:56 09/11/24 13:13 09/11/24 13:30 Notes Mental Status: alert / awake / arousable Nausea / Vomiting: adequately controlled Pain: adequately controlled Airway Patency, RR, SpO2: stable & adequate BP & HR: stable & adequate Hydration State: stable & adequate Neuraxial Anesthesia: was administered and sensory block is resolving Anesthetic Complications: no major complications apparent and Pt Satisfied with anesthetic care Epidural: Removed without complications and With tip intact
[2024-09-11] MEDS: OXYTOCIN 20 UNITS/LR 1,002 ML IV SCH (15:17)
[2024-09-11 16:39] VITALS: O2SAT 97
[2024-09-11] MEDS: BENZOCAINE 20% SPRY 85 APPLN/85 GM CAN EXT PRN (16:54)
[2024-09-11] MEDS: IBUPROFEN 600 MG TAB PO PRN (16:54)
[2024-09-11] MEDS: DIPHTHER/TETAN/PERTUS Vaccine (Tdap, Adol/Adult) 0.5mL IM ONE (17:07)
[2024-09-11] MEDS: DOCUSATE SODIUM 100 MG CAP PO SCH (20:21)
[2024-09-11] MEDS: ACETAMINOPHEN 325 MG TAB PO PRN (20:21)
--- NOTE | 2024-09-12 07:01 | Obstetrical Progress Note ---
Date of Service <Tejinder Zhang MD - Last Filed: 09/12/24 07:29> September 12, 2024 Assessment & Plan <Tejinder Zhang MD - Last Filed: 09/12/24 07:29> (1) care and examination: PPD#1 s/p at 38+ wga: Stable. Rh+, gbs neg, ri, vitals wnl, hgb stable, latest bsg 112 Continue routine care, ambulation, diet as tolerated Plan for DC this afternoon <Divine Larsen MD, FACOG - Last Filed: 09/12/24 07:29> (1) care and examination: Subjective <Tejinder Zhang MD - Last Filed: 09/12/24 07:29> Patient is a 28yo who is PPD#1 following at 38 weeks. Mild abd pain/cramping, well managed on analgesics Voiding w/o issue Tolerating meals Ambulating normally Lochia minimal, diminishing Planning to breastfeed. Constitutional: no fever, no chills or no sweats Respiratory: no dyspnea Cardiovascular: no chest pain, no palpitations or no calf pain Breast: no breast pain Gastrointestinal: no nausea or no vomiting Genitourinary (female): no dysuria Neurologic: no headache(s) no changes in vision, no headaches Physical Exam <Tejinder Zhang MD - Last Filed: 09/12/24 07:29> General: Alert, oriented. No acute distress. Cardiac: Regular rate and rhythm, no murmurs, rubs, or gallops. Respiratory: Clear to auscultation bilaterally. No increased work of breathing. Symmetrical chest rise. No respiratory distress. Abdomen: Soft, nontender, nondistended. Bowel sounds present. Uterus: Uterine fundus firm, nontender, palpable 2 cm below the umbilicus. Lower extremities: No lower extremity edema or swelling. No deep calf pain. Results & Data <Tejnider Zhang MD - Last Filed: 09/12/24 07:29> Vital Signs (Past 12 Hours) Vital Signs Temp Pulse Resp BP Pulse Ox O2 Del Method 09/12/24 03:56 36.7 C 65 14 123/77 Room Air 09/12/24 00:03 36.8 C 76 18 122/74 Room Air 09/11/24 20:18 36.5 C 79 16 122/81 97 Room Air Supervising Physician <Divine Larsen MD, FACOG - Last Filed: 09/12/24 07:29> Co-Signing Physician Notes Resident Physician Supervision Note: I was present with Dr. Zhang during the history and exam. I discussed the case with the resident and agree with the findings and plan as documented in the note. Any exceptions or clarifications are listed here: eating, voiding, ambulating, no bleeding issues. wants to go home later today. abd soft ff 2 down nt, nt calves. ppd#1 s/p , doing well, will dc later today, instructions reviewed. f/u 6 wk pp check. Documented By: Divine Larsen MD, FACOG Resident Activity Tracking <Tejinder Zhang MD - Last Filed: 09/12/24 07:29> Resident Involvement: Resident Care Provided Care Provided: Adult Hospital Medicine
[2024-09-12] MEDS: PRENATAL VITAMIN 1 TAB PO SCH (07:36)
[2024-09-12 10:49] VITALS: BP 117/77; PULSE 67; RESP 18; TEMP 97.5
[2024-09-12] MEDS ORDERED: bisacodyL 5 MG TABEC PO SCH (20:00)
== END 2024-09-12 14:36 | disposition home or self-care (01) | DRG 807 ==
LOC: OPB 17:25 → 4S1 17:26 → 4E2 09-11 16:00